=== PATIENT | female | born 1970 | race Caucasian/White ===

== ENCOUNTER 2017-04-13 11:18 | Emergency (ER) | payer BC ==
[~2017-04-13] VITALS: Ht 165.1 cm; Wt 70.3 kg
[2017-04-13] MEDS ORDERED: RAMIPRIL5 MG ORAL (11:23)
--- NOTE | 2017-04-13 12:05 | Emergency Room Report ---
History of Present Illness General Chief Complaint: Laceration Source: Patient Present Illness HPI Patient present with left thumb laceration this occurred just prior to arrival Patient was cutting beats When she lacerated her finger Denies any wrist pain denies any other injury The bleeding has now controlled with minimal pressure Patient is unaware of her last tetanus shot pain is essentially insignificant patient reports 0/10 Allergies: Coded Allergies: No Known Allergies (Unverified , 04/13/17) Patient History Past Medical History: see triage record Pertinent Family History: none Last Menstrual Period: Menopause Reviewed Nursing Documentation: PMH: Agreed, PSxH: Agreed Nursing Documentation-PMH Hx Hypertension: Yes Review of Systems All Other Systems: negative except mentioned in HPI Physical Exam Vital Signs Date Time Temp Pulse Resp B/P (MAP) Pulse Ox O2 Delivery O2 Flow Rate FiO2 04/13/17 11:20 98.2 81 16 150/96 99 Sp02 EP Interpretation: reviewed, normal General Appearance: well appearing, no apparent distress Head: normocephalic, atraumatic Eyes: bilateral eye PERRL, bilateral eye EOMI ENT: hearing grossly normal Neck: full range of motion, supple Respiratory: lungs clear Cardiovascular #1: regular rate, rhythm, no edema Musculoskeletal: normal inspection Skin: other - Approximately half centimeter laceration involving the medial aspect of the left thumb distally, appears linear no active hemorrhage Procedures Splinting Splinting : Consent: Verbal Location: left thumb Pre-Made Type: metal Splint: thumb splint Pre-Proc Neuro Vasc Exam: normal Post-Proc Neuro Vasc Exam: normal Patient Tolerated: Well Complications: None Laceration/Wound Repair Laceration/Wound Repair : Consent: Verbal Wound Location: upper extremity Wound's Depth, Shape: superficial Wound Length (cm): 0 Wound Explored: clean Irrigated w/ Saline (ccs): 30 Wound Debrided: minimal Wound Repaired With: Dermabond Sterile Dressing Applied?: Yes Splint Applied?: Yes Type of Splint Applied: thumb splint Patient Tolerated: Well Complications: None Medical Decision Making Diagnostic Impression: Primary Impression: Laceration ER Course Patient had laceration addressed as above Area was fairly linear and well approximated Therefore Dermabond was appropriate And the patient stable for close followup Last Vital Signs Date Time Temp Pulse Resp B/P (MAP) Pulse Ox O2 Delivery O2 Flow Rate FiO2 04/13/17 11:20 98.2 81 16 150/96 99 Status: improved Disposition: HOME, SELF-CARE Condition: Improved Referrals: NOT CHOSEN IPA/MD,REFERRING (PCP) Patient Instructions: Laceration Care, Adult Additional Instructions: Patient is provided with the discharge instructions notified to follow up with primary doctor in the next 2-3 days otherwise return to the er with any worsening symptoms. Please note that this report is being documented using DRAGON technology. This can lead to erroneous entry secondary to incorrect interpretation by the dictating instrument. WERNER JARVIS D.O. Apr 13, 2017 12:05
[2017-04-13 12:10] VITALS: BP 137/80
== END 2017-04-13 12:10 | disposition home or self-care (01) ==
LOC: EMR 11:58
DX: S61.012A Laceration without foreign body of left thumb without damage to nail, initial encounter (principal); W26.0XXA Contact with knife, initial encounter; Y92.89 Other specified places as the place of occurrence of the external cause; I10 Essential (primary) hypertension
CPT/HCPCS: 99283